=== PATIENT | male | born 1950 | race Caucasian/White ===

== ENCOUNTER 2018-06-14 06:45 | Emergency (ER) | payer MEDICARE, BC ==
[~2018-06-14] VITALS: Ht 188 cm; Wt 135.2 kg
[2018-06-14] MEDS ORDERED: QUINAPRIL HCL40 MG PO (06:56)
[2018-06-14] MEDS ORDERED: SUPER B-COMPL400 MCG PO (06:57)
[2018-06-14] MEDS ORDERED: ATORVASTATIN CA80 MG PO (06:58)
[2018-06-14] MEDS ORDERED: COREG25 MG PO (06:58)
[2018-06-14] MEDS ORDERED: ASPIR-LOW81 MG PO (06:59)
[2018-06-14] MEDS ORDERED: SYNTHROID100 MCG PO (06:59)
[2018-06-14] MEDS ORDERED: ALDACTONE25 MG PO (07:00)
--- NOTE | 2018-06-14 14:03 | EKG ---
[facility] [address] [facility] [place] [facility] [place], [place] [address] Signed Normal sinus rhythm Cannot rule out Anterior infarct , age undetermined T wave abnormality, consider lateral ischemia Abnormal ECG No previous ECGs available Confirmed by PAMELA CORADO MD ([id number] on 06/14/2018 2:03:24 PM Electronically Signed By: PAMELA CORADO MD 06/14/18 1403 PATIENT NAME: EDWARDSTHOMAS Electrocardiogram DATE OF : 50 PHYSICIAN: PAMELA CORADO MD REPORT #: [id number] REPORT IS CONFIDENTIAL AND NOT TO BE RELEASED WITHOUT AUTHORIZATION
== END 2018-06-14 09:05 | disposition short-term general hospital (02) ==
LOC: ED 06:45
DX: I21.09 ST elevation (STEMI) myocardial infarction involving other coronary artery of anterior wall (principal); I10 Essential (primary) hypertension; E78.00 Pure hypercholesterolemia, unspecified; E03.9 Hypothyroidism, unspecified; Z79.899 Other long term (current) drug therapy; Z79.82 Long term (current) use of aspirin
CPT/HCPCS: 71045; 80053; 84484; 85025; 93005; 93010; 96372; 96374; 99285; J1650; J2060